=== PATIENT | female | born 1955 | race Caucasian/White ===

== ENCOUNTER 2024-03-24 12:43 | Inpatient (IN) | payer OTHER, MEDICARE, MEDICAID ==
[~2024-03-24] VITALS: Ht 172.7 cm; Wt 121.6 kg
[2024-03-24 12:53] VITALS: BP_SYST 141; PULSE 122; RESP 22; O2SAT 95
[2024-03-24] MEDS: NS 1000 ML IV.SOLN IV ONE (13:34)
[2024-03-24 13:55] LABS: BASOPHILS % (AUTO) 0.1 % (0.0-2.0); EOSINOPHILS % (AUTO) 0.5 % (0.0-4.0); HEMOGLOBIN 11.4 g/dL (12.0-16.0); LYMPHOCYTES # (AUTO) 0.5 K/uL (1.0-5.5); MEAN CORPUSCULAR HEMOGLOBIN 33 pg (27-31); MEAN CORPUSCULAR HGB CONC 34 % (32-36); MEAN CORPUSCULAR VOLUME 98 fL (79.0-98.0); MONOCYTES % (AUTO) 12.7 % (1.7-9.3); NEUTROPHILS # (AUTO) 6.6 K/uL (1.8-7.7); NEUTROPHILS % (AUTO) 80.7 % (40.0-70.0); PLATELET COUNT (AUTO) 74 K/uL (130-430); RED BLOOD CELL COUNT(AUTO) 3.46 MIL/uL (4.2-6.2); RED CELL DISTRIBUTION WIDTH 15.4 % (9.0-15.0); WHITE BLOOD COUNT (AUTO) 8.2 K/uL (4.8-10.8)
[2024-03-24 14:13] LABS: INR 1.2 (0.8-1.2); PROTHROMBIN TIME 12.5 SECS (9.5-12.5)
[2024-03-24 14:17] LABS: ALANINE AMINOTRANSFERASE 15 U/L (12-78); ALBUMIN 2.5 g/dL (3.4-4.8); ANION GAP 6 (5-15); ASPARTATE AMINOTRANSFERASE 24 U/L (10-37); CALCIUM 8.6 mg/dL (8.4-11.0); CARBON DIOXIDE 25 mmol/L (23-29); CHLORIDE 96 mmol/L (98-107); CREATININE 1.97 mg/dL (0.55-1.30); GFR AFRICAN AMERICAN 32 mL/min (>90); GLUCOSE 120 mg/dL (74-106); POTASSIUM 4.2 mmol/L (3.5-5.1); SODIUM SERUM 127 mmol/L (136-145); TOTAL BILIRUBIN 2.4 mg/dL (0.0-1.0); TOTAL PROTEIN, SERUM 6.6 g/dL (6.4-8.3); UREA NITROGEN, BLOOD 40 mg/dL (8-21)
[2024-03-24] MEDS ORDERED: ONDANSETRON HCL 4 MG/2 ML VIAL ONE (14:17)
[2024-03-24 14:19] LABS: BILIRUBIN,DIRECT 1.5 mg/dL (0.0-0.3)
[2024-03-24 14:20] LABS: GFR NON AFRICAN-AMERICAN 27 mL/min (>90)
[2024-03-24] MEDS: MORPHINE 2 MG/ML INJ. SYRINGE IVP ONE (14:21)
[2024-03-24] MEDS: ONDANSETRON HCL 4 MG/2 ML VIAL IVP ONE (14:22)
[2024-03-24] MEDS: MEROPENEM 1 GM in NS 100 ML IV ONE ×2 (15:10→16:25)
[2024-03-24] MEDS ORDERED: BUSP15TA3 PO (16:08)
[2024-03-24] MEDS ORDERED: FURO20TA4 PO (16:08)
[2024-03-24] MEDS ORDERED: FLUT1AER INH (16:08)
[2024-03-24] MEDS ORDERED: METO-306 PO (16:08)
[2024-03-24] MEDS ORDERED: SEMA2PEN SUBCUT (16:08)
[2024-03-24] MEDS ORDERED: OXYB10TA30 PO (16:08)
[2024-03-24] MEDS: NACL 0.9% 1,000 ML IV ONE (16:28)
[2024-03-24] MEDS: LEVOFLOXACIN 250 MG/D5W 50 ML IV SCH (19:15)
[2024-03-24 20:30] VITALS: BP_SYST 129; PULSE 98; RESP 20; TEMP 98.2; O2SAT 94; O2SAT 95
[2024-03-24] MEDS: ALBUTEROL SULFATE 0.083% 2.5 MG/3 ML VIAL.NEB INH SCH (22:00)
[2024-03-24] MEDS: BUDESONIDE 0.5 MG/2 ML AMPUL.NEB INH SCH (22:00)
[2024-03-24] MEDS: DOXYCYCLINE HYCLATE 100 MG TABLET PO SCH (22:40)
[2024-03-24] MEDS: FUROSEMIDE 20 MG TABLET PO SCH (22:40)
[2024-03-24] MEDS: busPIRone HCL 5 MG TABLET PO SCH (22:40)
[2024-03-24] MEDS: HEPARIN SODIUM,PORCINE 5,000 UNITS/ML VIAL SUBCUT SCH (22:41)
[2024-03-24] MEDS: ACETAMINOPHEN 325 MG TABLET PO PRN (22:49)
[2024-03-25] VITALS (12 sets, daily range): BP systolic 129–160; PULSE 84–100; RESP 18–21; TEMP 98–98.9; O2SAT 94–98
[2024-03-25] MEDS: MEROPENEM 1 GM in NS 100 ML IV ONE (00:50)
[2024-03-25] MEDS ORDERED: FLUTICASONE/VILANTEROL 1 EACH BLST.W.DEV INH SCH (09:00)
[2024-03-25] MEDS ORDERED: OXYBUTYNIN CHLORIDE 5 MG XL TAB PO SCH (09:00)
[2024-03-25] MEDS: METOPROLOL SUCCINATE 50 MG TAB.SR.24H (TOPROL XL) PO SCH (09:05)
[2024-03-25] MEDS: oxyBUTYnin chloride 5 MG TABLET PO SCH (09:06)
[2024-03-25] MEDS: SIMETHICONE 80 MG TAB.CHEW PO ONE (10:28)
[2024-03-25] MEDS: HYDROcodone/ACETAMIN 10-325 MG TAB PO PRN (10:29)
[2024-03-25] MEDS: NACL 0.9% 1,000 ML IV SCH (12:53)
[2024-03-25] MEDS: SIMETHICONE 80 MG TAB.CHEW PO SCH (15:00)
[2024-03-25] MEDS: BACITRACIN ZINC 15 GM TOPICAL OINTMENT TP SCH (15:00)
[2024-03-25] MEDS: HEPARIN SODIUM,PORCINE 5,000 UNITS/ML VIAL MC ONE (19:08)
[2024-03-25] MEDS: CEFTAROLINE FOSAMIL ACETATE 400 MG in NS 250 ML IV SCH (20:38)
[2024-03-26] VITALS (9 sets, daily range): BP systolic 114–123; PULSE 65–72; RESP 18; TEMP 97.4–98.1; O2SAT 96–99
[2024-03-26 04:39] LABS: BASOPHILS % (AUTO) 0.2 % (0.0-2.0); EOSINOPHILS # (AUTO) 0.1 K/uL (0.0-0.4); EOSINOPHILS % (AUTO) 2.4 % (0.0-4.0); HEMOGLOBIN 10.2 g/dL (12.0-16.0); LYMPHOCYTES # (AUTO) 0.6 K/uL (1.0-5.5); LYMPHOCYTES % (AUTO) 12.9 % (20.5-51.5); MEAN CORPUSCULAR HEMOGLOBIN 33 pg (27-31); MEAN CORPUSCULAR HGB CONC 34 % (32-36); MEAN CORPUSCULAR VOLUME 98 fL (79.0-98.0); MONOCYTES # (AUTO) 1.2 K/uL (0.0-1.0); MONOCYTES % (AUTO) 26.7 % (1.7-9.3); NEUTROPHILS # (AUTO) 2.5 K/uL (1.8-7.7); NEUTROPHILS % (AUTO) 57.8 % (40.0-70.0); PLATELET COUNT (AUTO) 76 K/uL (130-430); RED BLOOD CELL COUNT(AUTO) 3.06 MIL/uL (4.2-6.2); RED CELL DISTRIBUTION WIDTH 15.3 % (9.0-15.0); WHITE BLOOD COUNT (AUTO) 4.4 K/uL (4.8-10.8)
[2024-03-26 05:45] LABS: ALBUMIN 2.1 g/dL (3.4-4.8); CREATININE 1.23 mg/dL (0.55-1.30); POTASSIUM 3.6 mmol/L (3.5-5.1); TOTAL BILIRUBIN 1.3 mg/dL (0.0-1.0); TOTAL PROTEIN, SERUM 6.1 g/dL (6.4-8.3)
[2024-03-27] VITALS (10 sets, daily range): BP systolic 120–154; PULSE 66–70; RESP 16–18; TEMP 97–97.8; O2SAT 94–100
[2024-03-27] MEDS: ALBUTEROL SULFATE 0.083% 2.5 MG/3 ML VIAL.NEB INH SCH (08:13)
[2024-03-27] MEDS: BUDESONIDE 0.5 MG/2 ML AMPUL.NEB ONE (08:14)
[2024-03-27] MEDS ORDERED: ZOLPIDEM TARTRATE 5 MG TABLET PO PRN (12:00)
[2024-03-27] MEDS: BUDESONIDE 0.5 MG/2 ML AMPUL.NEB INH SCH (20:10)
[2024-03-27] MEDS: BENZOCAINE/MENTHOL 1 EACH LOZENGE MM PRN (22:02)
[2024-03-28] VITALS (11 sets, daily range): BP systolic 118–145; PULSE 63–79; RESP 15–19; TEMP 97.5–98.6; O2SAT 94–100
[2024-03-28 07:00] LABS: TOTAL IRON BIND. CAPACITY 150 ug/dL (250-450)
[2024-03-28] MEDS: HYDROcodone/ACETAMIN 10-325 MG TAB PO PRN (15:31)
[2024-03-29] VITALS (7 sets, daily range): BP systolic 130–137; PULSE 71–76; RESP 16–20; TEMP 98–98.5; O2SAT 94–96
[2024-03-29 08:15] LABS: CALCIUM 8.2 mg/dL (8.4-11.0); CREATININE 0.89 mg/dL (0.55-1.30); POTASSIUM 3.5 mmol/L (3.5-5.1)
[2024-03-29 08:28] LABS: BASOPHILS % (AUTO) 0.4 % (0.0-2.0); EOSINOPHILS # (AUTO) 0.1 K/uL (0.0-0.4); EOSINOPHILS % (AUTO) 3.7 % (0.0-4.0); HEMATOCRIT 30.1 % (36-48); HEMOGLOBIN 10.3 g/dL (12.0-16.0); LYMPHOCYTES # (AUTO) 0.7 K/uL (1.0-5.5); LYMPHOCYTES % (AUTO) 18.4 % (20.5-51.5); MEAN CORPUSCULAR HEMOGLOBIN 34 pg (27-31); MEAN CORPUSCULAR HGB CONC 34 % (32-36); MEAN CORPUSCULAR VOLUME 98 fL (79.0-98.0); MONOCYTES # (AUTO) 0.5 K/uL (0.0-1.0); MONOCYTES % (AUTO) 13.8 % (1.7-9.3); NEUTROPHILS # (AUTO) 2.4 K/uL (1.8-7.7); NEUTROPHILS % (AUTO) 63.7 % (40.0-70.0); PLATELET COUNT (AUTO) 121 K/uL (130-430); RED BLOOD CELL COUNT(AUTO) 3.06 MIL/uL (4.2-6.2); RED CELL DISTRIBUTION WIDTH 15.1 % (9.0-15.0)
[2024-03-29 09:52] LABS: WHITE BLOOD COUNT (AUTO) 3.7 K/uL (4.8-10.8)
[2024-03-29] MEDS: ERTAPENEM SODIUM 1 GM in NS 50 ML IV SCH (12:15)
[2024-03-29] MEDS: LORATADINE 10 MG TABLET PO ONE (14:33)
[2024-03-29] MEDS ORDERED: BISACODYL 5 MG TABLET.DR (DULCOLAX) PO PRN (15:15)
[2024-03-29] MEDS: LACTULOSE 20 GM/30 ML UDC PO ONE (15:45)
[2024-03-29] MEDS ORDERED: DOCUSATE SODIUM 250 MG CAPSULE PO SCH (21:00)
[2024-03-30] MEDS ORDERED: LORATADINE 10 MG TABLET PO SCH (09:00)
[2024-04-01 10:07] LABS: ANTI NUCLEAR AB WITH REFLEX Positive (Negative)
[2024-04-03 12:07] LABS: ANTI-SMOOTH MUSCLE AB 5 Units (0-19)
[2024-04-04 03:08] LABS: HEPATITIS B CORE AB, TOTAL Negative (Negative); HEPATITIS B SURFACE AG Negative (Negative); HEPATITIS C VIRUS AB Non Reactive (Non Reactive)
== END 2024-03-29 18:18 | DRG 602 ==
LOC: SED 12:43 → STU 14:54 → SMU 03-26 17:15
PROVIDERS: ADMIT Internal Medicine; ATTEND Internal Medicine
DX: L03.116 Cellulitis of left lower limb (principal); E43 Unspecified severe protein-calorie malnutrition; N17.0 Acute kidney failure with tubular necrosis; D61.818 Other pancytopenia; K76.6 Portal hypertension; Z68.41 Body mass index [BMI] 40.0-44.9, adult; L03.115 Cellulitis of right lower limb; I89.0 Lymphedema, not elsewhere classified; I87.8 Other specified disorders of veins; E66.01 Morbid (severe) obesity due to excess calories; I10 Essential (primary) hypertension; D69.59 Other secondary thrombocytopenia; D63.8 Anemia in other chronic diseases classified elsewhere; K76.0 Fatty (change of) liver, not elsewhere classified; D69.6 Thrombocytopenia, unspecified; K74.60 Unspecified cirrhosis of liver; L30.9 Dermatitis, unspecified; Z85.820 Personal history of malignant melanoma of skin; Z90.710 Acquired absence of both cervix and uterus; Z88.0 Allergy status to penicillin; Z88.2 Allergy status to sulfonamides; Z88.8 Allergy status to other drugs, medicaments and biological substances; Z79.899 Other long term (current) drug therapy; R16.2 Hepatomegaly with splenomegaly, not elsewhere classified
CPT/HCPCS: 36415; 71045; 76700; 76770; 80048; 80053; 80076; 83516; 83540; 83550; 83605; 84484; 85025; 85044; 85379; 85610; 85730; 86038; 86704; 86706; 86803; 87040; 87070; 87081; 87340; 93005; 93970; 94640; 94664; 94760; 97110-GP; 97116-GP; 97530-GP; 99291; G0378; J0712; J1335; J1644; J1956; J2185; J2270; J2405; J7050; J7626